=== PATIENT | female | born 1970 | race Caucasian/White ===

== ENCOUNTER 2018-10-11 08:15 | Inpatient (IN) | payer OTHER ==
[~2018-10-11] VITALS: Ht 162.6 cm; Wt 81.6 kg
--- NOTE | 2018-10-11 09:04 | NUR ---
THIS IS 48 YEAR OLD FEMALE WHO C/O OF COMPLAINING ABOUT A LOT OF PAIN BELOW HER KNEES, STARTED APPROX 7 MONTHS AGO. IT HAPPENED AFTER FAINTING" TODAY "CANT EVEN LIFT UP LEGS"
[2018-10-11 09:07] LABS: BASOPHILS # (AUTO) 0.06 x10^3/uL (0-0.1); BASOPHILS % (AUTO) 1 % (0-1); EOSINOPHILS # (AUTO) 0.08 x10^3/uL (0-0.4); EOSINOPHILS % (AUTO) 1 % (1-7); HCT (SEDRATE) 35.5 % (34.6-47.8); LYMPHOCYTES # (AUTO) 1.65 x10^3/uL (1-3.4); LYMPHOCYTES % (AUTO) 26 % (22-44); MD NO; MEAN CORPUSCULAR HEMOGLOBIN 27.7 pg (27.0-34.8); MEAN CORPUSCULAR HGB CONC 32.4 g/dL (32.4-35.8); MEAN CORPUSCULAR VOLUME 85.6 fL (80-100); MEAN PLATELET VOLUME 7.7 fL (7.4-10.4); MONOCYTES # (AUTO) 0.35 x10^3/uL (0.2-0.8); MONOCYTES % (AUTO) 6 % (2-9); NEUTROPHILS % (AUTO) 66 % (42-75); PLATELET COUNT 408 x10^3/uL (130-400); RED BLOOD COUNT 4.12 x10^6/uL (3.82-5.3); RED CELL DISTRIBUTION WIDTH 16.8 % (9.6-15.2)
--- NOTE | 2018-10-11 09:12 | NUR ---
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 [id number] AT BS, WARM BLANKET GIVEN. DISCUSSED PLAN OF CARE, PT VERBALIZED NO OTHER NEEDS AT THIS TIME.
[2018-10-11 09:15] LABS: ALANINE AMINOTRANSFERASE 289 U/L (12-78); ALBUMIN 3.6 g/dL (3.4-5.0); ANION GAP 6 mmol/L (5-15); CALCIUM 8.1 mg/dL (8.5-10.1); CHLORIDE 107 mmol/L (98-107); CREATININE 0.37 mg/dL (0.55-1.02); HIGH-SENSITIVITY CRP 0.23 mg/dL (0.02-0.30)
[2018-10-11 09:17] LABS: ALKALINE PHOSPHATASE 57 U/L (45-117); BILIRUBIN,TOTAL 0.4 mg/dL (0.2-1.0)
[2018-10-11] MEDS ORDERED: SODIUM CHLORIDE FLUSH 10ML SYR IVF ONE ×2 (10:00→11:30)
[2018-10-11 10:01] LABS: FREE T4 (FREE THYROXINE) 1.05 ng/dL (0.76-1.46)
--- NOTE | 2018-10-11 10:28 | NUR ---
PT RESTING, FAMILY AT BS.
[2018-10-11] MEDS ORDERED: SODIUM CHLORIDE 0.9% 1,000ML IVBOLUS ONE (11:30)
--- NOTE | 2018-10-11 11:45 | NUR ---
PT TO BATHROOM, GAIT SLOW AND STEADY ASSISTED BY FAMILY MEMBER
--- NOTE | 2018-10-11 12:06 | NUR ---
REPORT TO JOSH PORTILLO, PLAN OF CARE DISCUSSED
--- NOTE | 2018-10-11 12:15 | NUR ---
report received from BANDAR [place], care assumed at this time. 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 refusal form completed and signed by pt, pt's son Omkar is translating. consent form for LP completed and signed by pt. pt a&o, resps even and unlabored. all monitors in place. pt denies pain at this time.
[2018-10-11] MEDS ORDERED: LIDOCAINE-MPF 1%, 5ML ONE ×2 (12:26→12:38)
--- NOTE | 2018-10-11 12:50 | NUR ---
LUMBAR PUNCTURE COMPLETE, PT TOLERATED WELL.
--- NOTE | 2018-10-11 13:13 | NUR ---
PT A&OX4, NEURO INTACT. PT LAYING FLAT ON BACK. VSS. NSR ON MUSIC INTERNSHIP WITH NO ECTOPY. PT TO BE ADMITTED, PT AWARE OF POC. SON AT BEDSIDE. PT HAS NO COMPLAINT AT THIS TIME. AWAITING ADMIT BED ASSIGNEMENT AND TRANSPORT.
[2018-10-11 13:14] LABS: GLUCOSE, CSF 55 mg/dL (40-80); TOTAL PROTEIN,CSF 34 mg/dL (15-45)
[2018-10-11] MEDS ORDERED: SODIUM CHLORIDE 0.9% 1,000 ML IV ONE (13:25)
[2018-10-11] MEDS ORDERED: SODIUM CHLORIDE FLUSH 10ML SYR IVF PRN (13:30)
[2018-10-11] MEDS ORDERED: LABETALOL 5 MG/ML SYRINGE IVPush PRN (14:00)
[2018-10-11] MEDS ORDERED: ONDANSETRON ODT 4 MG PO PRN (14:00)
[2018-10-11] MEDS ORDERED: POLYETHYLENE GLYCOL 17 GM PACKET PO PRN (14:00)
[2018-10-11] MEDS ORDERED: ONDANSETRON 2MG/ML, 2ML IVPush PRN (14:00)
[2018-10-11 14:05] LABS: FREE T4 (FREE THYROXINE) 1.04 ng/dL (0.76-1.46)
[2018-10-11 14:47] VITALS: BP 149/96
[2018-10-11] MEDS: SODIUM CHLORIDE 0.45% 1,000 ML IV SCH ×2 (16:41→23:40)
[2018-10-11 18:55] VITALS: BP 155/105
[2018-10-11] MEDS: ACETAMINOPHEN 325 MG TABLET PO PRN (21:54)
[2018-10-12 01:42] VITALS: BP 142/95
[2018-10-12 05:26] LABS: BASOPHILS # (AUTO) 0.02 x10^3/uL (0-0.1); BASOPHILS % (AUTO) 0 % (0-1); EOSINOPHILS # (AUTO) 0.03 x10^3/uL (0-0.4); EOSINOPHILS % (AUTO) 1 % (1-7); LYMPHOCYTES # (AUTO) 2.12 x10^3/uL (1-3.4); LYMPHOCYTES % (AUTO) 33 % (22-44); MD NO; MEAN CORPUSCULAR HEMOGLOBIN 27.8 pg (27.0-34.8); MEAN CORPUSCULAR HGB CONC 32.7 g/dL (32.4-35.8); MEAN CORPUSCULAR VOLUME 84.9 fL (80-100); MEAN PLATELET VOLUME 7.7 fL (7.4-10.4); MONOCYTES # (AUTO) 0.46 x10^3/uL (0.2-0.8); MONOCYTES % (AUTO) 7 % (2-9); NEUTROPHILS # (AUTO) 3.73 x10^3/uL (1.8-6.8); NEUTROPHILS % (AUTO) 59 % (42-75); PLATELET COUNT 360 x10^3/uL (130-400); RED BLOOD COUNT 3.84 x10^6/uL (3.82-5.3); RED CELL DISTRIBUTION WIDTH 16.4 % (9.6-15.2)
[2018-10-12 05:28] LABS: ALBUMIN 3.4 g/dL (3.4-5.0); ANION GAP 7 mmol/L (5-15); CALCIUM 8.1 mg/dL (8.5-10.1); CHLORIDE 110 mmol/L (98-107)
[2018-10-12 06:04] LABS: ALANINE AMINOTRANSFERASE 245 U/L (12-78); ALKALINE PHOSPHATASE 56 U/L (45-117); BILIRUBIN,TOTAL 0.2 mg/dL (0.2-1.0); CREATINE KINASE, TOTAL 13211 U/L (26-192); CREATININE 0.33 mg/dL (0.55-1.02); TOTAL PROTEIN 6.5 g/dL (6.4-8.2)
[2018-10-12 07:00] VITALS: BP 156/96
[2018-10-12] MEDS: SODIUM CHLORIDE 0.45% 1,000 ML IV SCH ×2 (07:46→16:00)
[2018-10-12] MEDS: ACETAMINOPHEN 325 MG TABLET PO PRN ×2 (07:46→16:34)
[2018-10-12] MEDS: SENNA/DOCUSATE TABLET PO SCH (07:49)
[2018-10-12 14:00] VITALS: BP 165/93
[2018-10-12 18:40] VITALS: BP 157/103
[2018-10-13] MEDS: SODIUM CHLORIDE 0.45% 1,000 ML IV SCH ×3 (00:06→16:00)
[2018-10-13 01:43] VITALS: BP 144/86
[2018-10-13 05:46] LABS: BASOPHILS # (AUTO) 0.01 x10^3/uL (0-0.1); BASOPHILS % (AUTO) 0 % (0-1); EOSINOPHILS # (AUTO) 0.08 x10^3/uL (0-0.4); EOSINOPHILS % (AUTO) 1 % (1-7); LYMPHOCYTES % (AUTO) 25 % (22-44); MD NO; MEAN PLATELET VOLUME 7.6 fL (7.4-10.4); MONOCYTES # (AUTO) 0.51 x10^3/uL (0.2-0.8); MONOCYTES % (AUTO) 6 % (2-9); NEUTROPHILS # (AUTO) 5.47 x10^3/uL (1.8-6.8); NEUTROPHILS % (AUTO) 68 % (42-75); PLATELET COUNT 333 x10^3/uL (130-400); RED BLOOD COUNT 3.91 x10^6/uL (3.82-5.3); RED CELL DISTRIBUTION WIDTH 16.1 % (9.6-15.2)
[2018-10-13 05:56] LABS: CHLORIDE 107 mmol/L (98-107)
[2018-10-13 06:30] LABS: ALANINE AMINOTRANSFERASE 228 U/L (12-78); ALBUMIN 3.3 g/dL (3.4-5.0); ALKALINE PHOSPHATASE 57 U/L (45-117); ANION GAP 5 mmol/L (5-15); BILIRUBIN,TOTAL 0.4 mg/dL (0.2-1.0); CALCIUM 8.4 mg/dL (8.5-10.1); CREATINE KINASE, TOTAL 12224 U/L (26-192); CREATININE 0.27 mg/dL (0.55-1.02); TOTAL PROTEIN 6.5 g/dL (6.4-8.2)
[2018-10-13 06:33] VITALS: BP 145/91
[2018-10-13] MEDS ORDERED: POTASSIUM CHLORIDE 20 MEQ TAB.ER.PRT PO ONE ×2 (07:30→11:30)
[2018-10-13] MEDS: SENNA/DOCUSATE TABLET PO SCH (08:10)
[2018-10-13 12:05] VITALS: BP 162/98
[2018-10-13] MEDS ORDERED: LORazepam 2 MG/ML, 1ML IVPush ONE (12:30)
[2018-10-13] MEDS ORDERED: PRED20TA PO (13:17)
[2018-10-13] MEDS ORDERED: OMEP-110 PO (13:17)
== END 2018-10-13 17:05 | disposition home or self-care (01) | DRG 547 ==
LOC: ED 08:51 → EDIP 13:25 → 3NE 14:45 → DCLOUNGE 10-13 16:50
PROVIDERS: ADMIT Internal Medicine; ATTEND Internal Medicine
PROC: 009U3ZX Drainage of Spinal Canal, Percutaneous Approach, Diagnostic (ICD-10-PCS; principal; 2018-10-11)
DX: M33.29 Polymyositis with other organ involvement (principal); D25.9 Leiomyoma of uterus, unspecified; D64.9 Anemia, unspecified; E03.9 Hypothyroidism, unspecified; E66.9 Obesity, unspecified; Z82.49 Family history of ischemic heart disease and other diseases of the circulatory system; Z68.30 Body mass index [BMI] 30.0-30.9, adult
CPT/HCPCS: 36415; 70551; 71045; 72141; 76830; 80053; 82085; 82550; 82945; 83516; 83615; 83735; 83874; 84100; 84157; 84439; 84443; 85025; 85651; 86038; 86141; 86160; 86225; 86235; 86255; 86256; 86376; 86431; 87070; 87205; 87252; 89051; G0378; Q0162; J7512

== ENCOUNTER 2018-10-17 12:51 | Emergency (ER) | payer SELFPAY ==
[~2018-10-17] VITALS: Ht 160 cm; Wt 75.6 kg
[~2018-10-17 12:51] MED LIST: OMEP-110 PO; PRED20TA PO
[2018-10-17] MEDS ORDERED: ONDANSETRON ODT 4 MG PO ONE (13:30)
[2018-10-17 13:50] LABS: BASOPHILS # (AUTO) 0.02 x10^3/uL (0-0.1); BASOPHILS % (AUTO) 0 % (0-1); EOSINOPHILS % (AUTO) 0 % (1-7); LYMPHOCYTES # (AUTO) 2.59 x10^3/uL (1-3.4); LYMPHOCYTES % (AUTO) 23 % (22-44); MD NO; MEAN CORPUSCULAR HEMOGLOBIN 27.9 pg (27.0-34.8); MEAN CORPUSCULAR VOLUME 84.7 fL (80-100); MEAN PLATELET VOLUME 7.7 fL (7.4-10.4); MONOCYTES # (AUTO) 0.51 x10^3/uL (0.2-0.8); MONOCYTES % (AUTO) 5 % (2-9); NEUTROPHILS # (AUTO) 8.17 x10^3/uL (1.8-6.8); NEUTROPHILS % (AUTO) 72 % (42-75); PLATELET COUNT 493 x10^3/uL (130-400); RED BLOOD COUNT 4.32 x10^6/uL (3.82-5.3); RED CELL DISTRIBUTION WIDTH 16.6 % (9.6-15.2)
[2018-10-17] MEDS ORDERED: METOCLOPRAMIDE 5 MG/ML, 2ML ONE (13:52)
[2018-10-17] MEDS ORDERED: DIPHENHYDRAMINE 50 MG/ML, 1ML ONE (13:52)
[2018-10-17] MEDS ORDERED: MORPHINE SULFATE 4 MG/ML, 1ML ONE (13:52)
[2018-10-17 13:56] LABS: ALANINE AMINOTRANSFERASE 262 U/L (12-78); ANION GAP 7 mmol/L (5-15); CHLORIDE 106 mmol/L (98-107); CREATININE 0.51 mg/dL (0.55-1.02)
[2018-10-17] MEDS ORDERED: MORPHINE SULFATE 4 MG/ML, 1ML IVPush PRN (14:00)
[2018-10-17] MEDS ORDERED: SODIUM CHLORIDE 0.9% 1,000ML IVBOLUS ONE (14:00)
[2018-10-17] MEDS ORDERED: DIPHENHYDRAMINE 50 MG/ML, 1ML IVPush ONE (14:00)
[2018-10-17] MEDS ORDERED: METOCLOPRAMIDE 5 MG/ML, 2ML IVPush ONE (14:00)
[2018-10-17 14:01] LABS: ALKALINE PHOSPHATASE 67 U/L (45-117); BILIRUBIN,TOTAL 0.5 mg/dL (0.2-1.0); TOTAL PROTEIN 7.8 g/dL (6.4-8.2)
[2018-10-17] MEDS ORDERED: ONDANSETRON ODT 4 MG ONE (14:12)
[2018-10-17 14:21] LABS: CREATINE KINASE, TOTAL 8946 U/L (26-192)
[2018-10-17] MEDS ORDERED: CAFFEINE CITRATE 60 MG/3 ML IVPB ONE (14:30)
--- NOTE | 2018-10-17 14:32 | NUR ---
pt reports relief of pain w/ regelba & javy, states she does not want more meds at this time
[2018-10-17 14:47] LABS: MICROSCOPIC INDICATED
--- NOTE | 2018-10-17 15:02 | NUR ---
pt up to restroom in nad
[2018-10-17 15:15] LABS: CULTURE INDICATED? YES
[2018-10-17 16:10] VITALS: BP 161/90
== END 2018-10-17 16:12 | disposition home or self-care (01) ==
LOC: ED 14:13
DX: G97.1 Other reaction to spinal and lumbar puncture (principal); I10 Essential (primary) hypertension; R11.2 Nausea with vomiting, unspecified
CPT/HCPCS: 36415; 80053; 81001; 82550; 85025; 87086; 96361; 96374; 96375; 99283; J1200; J2765; J7030